=== PATIENT | female | born 1950 | race Caucasian/White ===

== ENCOUNTER 2016-07-14 20:31 | Emergency (ER) | payer MEDICARE ==
[~2016-07-14] VITALS: Ht 165.1 cm; Wt 88.6 kg
[2016-07-14 20:40] VITALS: BP 184/94; RESP 16; O2SAT 95
--- NOTE | 2016-07-14 21:30 | ED.REPORT ---
HPI-Facial Injury Date of Service Jul 14, 2016 ED Provider: Dr. Sergio Day M.D. A 66 year old female with a history of hyperlipidemia and hypertension presents to the ED with epistaxis onset 1800 tonight after blowing her nose. The bleeding started from the left nostril and the patient is unsure whether or not her right nostril ever bled. She was accidentally hit in the nose this morning by a grandson. Her last episode of epistaxis was as a child. Nursing Notes Stated Complaint: BLOODY NOSE Chief Complaint: ENT & Mouth Nursing Notes Reviewed: Yes Allergies: Coded Allergies: No Known Allergies (Unverified , 07/14/16) General Time Seen by Provider: 21:29 Chief Complaint Nose bleed Hx Obtained From: Patient Arrived By: Walk-in Onset Occurred: 1 - 4 hours ago Symptom Duration: Since onset Progression Since Onset: Constant Severity: Current: No pain currently Severity: Maximum: No pain Associated with: Denies: Shortness of breath Pertinent Negative: Relieved by nothing Immunizations: Unknown Recent Healthcare: No recent doctor visit Similar Sx Previous: Yes Past Medical History Past Medical History Reports: Hyperlipidemia, Hypertension Past Surgical History Reports: Appendectomy Smoking History Unknown if Ever Smoker Social History Other Social History: Good social support Ambulatory Status Independent Review of Systems Constitutional: Denies: Fever Ears / Nose / Throat: Reports: Nose bleeding Complete sys rev & neg: except as marked. Respiratory: Denies: Non-productive cough, Shortness of breath GI: Denies: Vomiting Physical Exam Initial Vital Signs Vital Signs (First) Date Time Temp Pulse Resp B/P Pulse Ox O2 Delivery O2 Flow Rate FiO2 07/14/16 20:40 36.7 79 16 184/94 95 Room Air Initial VS: Reviewed, Vital signs abnormal Respiratory: No respiratory distress Extremities: Vascular intact, Neuro intact Skin: Warm, Dry, No cyanosis Psychiatric: Mood/affect normal, Behavior normal, Normal thought content Head / Eyes: Atraumatic, Normocephalic ENT: Airway patent, Mucous membranes moist, No facial swelling Nose: Positive: Epistaxis left Neck: Supple, Full range of motion Neurologic: Oriented X3, Speech NL, No motor deficits, No sensory deficits General/Constitutional: Awake, Alert, No acute distress Procedures Epistaxis Management Time: 21:42 Procedure Performed by: ED physician Consent / Setup / Site Prep: Consent from patient, Time-out performed, Hand hygiene observed, Stand sterile technique Side and Location of Bleed: Nare left - anterior Pre-medication and Procedure: Rapid rhino inserted Post-Procedure / Complications: Bleeding stopped, No complications, Patient stable, Tolerated procedure well Re-Eval/Medical Decision Med Decision/Clinical Course Uncomplicated left anterior nosebleed likely related to the dry weather right now. Not stopped with Afrin and pressure so Rhino Rocket was placed with good results. Re-Evaluation/Progress : Time of Eval: 22:25 Patient Status: Condition improved Re-Evaluation/Progress Note: Bleeding has ceased. Discussed with patient diagnosis and plan for discharge. Follow-up and return to the ER instructions given. Patient agrees with plan for care and all questions were addressed. Counseled Regarding: Diagnosis, Need for follow-up, When/why to return to ED Discharge & Departure Impression: Primary Impression: Anterior epistaxis Disposition: Home Discharge Condition All VS Reviewed: Yes Condition: Stable Patient Instructions: Epistaxis (ED) Additional Instructions: The extreme dryness in the air during this cold weather makes people prone to nosebleeds. Instill one drop of Afrin around the pack 3 times daily as needed for any recurrent bleeding. Humidified air helps. The pack needs to stay in for 3-4 days. Follow-up with your provider or ENT doctor, Dav Hatch, for removal on Monday. Contact me at [phone] between the hours of 9 PM and 6 AM for the next few nights if you have any questions or concerns. Referrals: Tricia Cardona PA-C (PCP) Dav Hatch MD [employer] Attestation Portions of this note were transcribed by Marilee Ulloa. I, Dr. Day, personally performed the history, physical exam, and medical decision-making; I reviewed and confirmed the accuracy of the information in the transcribed note. Signed by: Ananya Painter, 07/14/2016, 22:57 copies to: Dav Hatch MD; Tricia Cardona PA-C, Howard L MD Jul 14, 2016 21:30 MARILEE ULLOA Jul 14, 2016 21:48
[2016-07-14 22:40] VITALS: BP 143/61; PULSE 70; RESP 16; O2SAT 95
[2016-07-14 22:59] VITALS: BP 143/61; PULSE 70; RESP 16; O2SAT 95
== END 2016-07-14 22:59 | disposition home or self-care (01) ==
LOC: SED 20:31
DX: R04.0 Epistaxis (principal); I10 Essential (primary) hypertension; E78.5 Hyperlipidemia, unspecified